=== PATIENT | male | born 1965 | race Native Hawaiian/Other Pacific Islander ===

== ENCOUNTER 2021-10-04 03:39 | Emergency (ER) | payer BC ==
[~2021-10-04] VITALS: Ht 180.3 cm; Wt 74.8 kg
[2021-10-04 04:04] LABS: PLATELET COUNT 948 K/uL (142-355)
[2021-10-04 09:27] VITALS: BP 97/55; TEMP 98
== END 2021-10-04 09:27 | disposition short-term general hospital (02) ==
LOC: ED 03:39
PROVIDERS: Emergency Medicine
DX: N17.8 Other acute kidney failure (principal); E87.1 Hypo-osmolality and hyponatremia; Z11.52 Encounter for screening for COVID-19
CPT/HCPCS: 36415; 80053; 81000; 82150; 83605; 83690; 85007; 85027; 87040; 87635; 96360; 96361; 96365; 96366; 96375; 99284; J1885; J1956; J2405; U0003